=== PATIENT | female | born 1940 | race African-American/Black ===

== ENCOUNTER 2017-03-24 18:41 | Inpatient (IN) | payer MEDICARE ==
--- NOTE | ~2017-03-24 | CT57 ---
[facility] A Service of [facility] RADIOLOGY TEXT RESULTS PATIENT: SUDEEP CURTIS LOCATION: [facility] 454-01 : 42 UNIT #: [id number] AGE: [address]: Jairo Madison MD SEX: F ORDER DR: [id number] [facility]. [place], [place] [address] [id number] I MR#: [id number] #: [id number] NAME: SUDEEP CURTIS : 1940 SEX: F STUDY DATE/TIME: 03/28/2017 13:19 UNIT: [facility] ROOM: 4 STUDY DESCRIPTION: CT Chest Wo Cont Attending Physician: Jairo Madison M.D. Ordering Physician: Veronica Neal M.D. Primary Care Physician: Ana M Pedro M.D. MEDICAL IMAGING REPORT This report is preliminary unless electronic signature is present EXAM CT chest, without contrast. HISTORY Aspiration pneumonia and sepsis and shortness of air for [address] exam was performed with one or more of the following radiation dose reduction techniques: automatic exposure control, adjustment of mA and/or kV according to patient size, and iterative reconstruction. FINDINGS CT chest without contrast demonstrates mild multifocal subsegmental atelectasis versus infiltrate in the bilateral lower lobes, and probable minimal atelectasis in the inferior lingula. No pulmonary consolidation in the upper lungs. No pleural effusions. No adenopathy. Normal caliber thoracic aorta. No pericardial thickening or effusion. IMPRESSION 1. Nnqy-bx-lmjfzpdz multifocal subsegmental atelectasis or infiltrate in the bilateral lower lobes. No focal consolidation in the upper lungs. 2. No adenopathy or effusion. Dictated by... Owen Cordero M.D. THIS IS AN ELECTRONICALLY VERIFIED REPORT Owen Cordero M.D. at 03/29/2017 10:35 PM RENATE/suhas TD: 03/28/2017 23:58 [facility] A Service of [facility] RADIOLOGY TEXT RESULTS PATIENT: SUDEEP CURTIS LOCATION: [facility] 454-01 : 42 UNIT #: [id number] AGE: [address]: Jairo Madison MD SEX: F ORDER DR: JOB #: [id number] MEDICAL IMAGING REPORT Page 1 of 1 COPY
--- NOTE | ~2017-03-24 | DS ---
Unit #: [id number] #: [id number] Patient: SUDEEP CURTIS [id number] [address] [address] [id number] I MR#: [id number] NAME: SUDEEP CURTIS ROOM: 464 Age: 76 Sex: F Admission Date: 03/24/2017 : 1940 Discharge Date: 04/01/2017 Attending Physician: Jairo Madison M.D. Primary Care Physician: Ana M Pedro M.D. DISCHARGE SUMMARY DISCHARGE DIAGNOSES 1. Status post acute hypoxemic respiratory failure. 2. Pneumonia, status post completion of antibiotics. 3. Status post PEG tube, on tube feeds. 4. Urinary tract infection, status post completion of antibiotics. 5. Dementia. 6. Toxic metabolic encephalopathy. 7. Acute kidney injury and hyponatremia, status post nephrology eval: Last BUN and creatinine 12 and 0.4 and sodium of 139. Last chemistry panel was done on March 30. CONSULTS DURING THIS HOSPITAL STAY 1. Dr. Omi Arias - Intensive Care. 2. Dr. Rendon - Surgery. 3. Dr. Fuentes - Nephrology. LABS, DIAGNOSTICS AND PROCEDURES DURING THIS HOSPITAL STAY EGD per surgery showed some gastritis. PEG tube placement. Chest x-ray on admission - coarse interstitial markings left base, suggest left lower lobe interstitial infiltrate. Central line placement per Interventional Radiology. CT of the chest without contrast - mild to moderate multifocal segmental atelectasis or infiltrates in the bilateral lower lobes. No focal consolidation in the upper lungs. No adenopathy or effusion. Urine culture showed Proteus mirabilis. Sputum culture showed MRSA. (1) negative. C. diff negative. Blood culture negative. HISTORY OF PRESENT HOSPITAL STAY Please refer to H and P done by me for initial presentation on this female. Unit #: [id number] #: [id number] Patient: SUDEEP CURTIS ACTIVE PROBLEMS AND DIAGNOSES Acute hypoxic respiratory failure secondary to pneumonia: Was initially admitted to ICU. Was evaluated by pulmonary. Was treated with the bronchodilators and IV antibiotics. Currently stable from pulmonary standpoint. No sign of respiratory distress. Stable to be discharged per pulmonary status post completion antibiotics. Methicillin resistant Staph aureus sputum. Consider colonization. Urinary tract infection, status post completion of antibiotics: Stable. Hyponatremia and acute kidney injury, status post nephrology evaluation: Stable. Last chemistry as above. Dementia: Continue home meds. DISCHARGE MEDICATIONS 1. Tylenol. 2. Valproic acid 250 mg b.i.d. 3. Mysoline 25 mg b.i.d. 4. Klonopin 0.5 mg b.i.d. p.r.n. for anxiety. 5. ProMod 60 mL p.o. t.i.d. 6. Lopressor 25 mg b.i.d. 7. Colace 100 mg b.i.d. 8. MiraLAX daily. 9. Senokot 8.6 mg at bedtime. 10. Nuedexta 20/10, one tablet daily. 11. Namenda 10 mg b.i.d. 12. Zocor 10 mg at bedtime. 13. Sliding scale insulin. 14. Florastor 250 mg daily. 15. Melatonin at bedtime p.r.n. 16. Aspirin 81 mg daily. 17. Long Eddy 5/325, one tablet b.i.d. p.r.n. for pain. 18. Razadyne 4 mg p.o. t.i.d. 19. Zyprexa 2.5 mg in the morning and 5 mg at bedtime. 20. Synthroid 25 mcg daily. 21. Folic acid 1 mg daily. 22. Thiamine 100 mg daily. 23. Will discontinue ferrous sulfate and continue just the Niferex 150 mg daily. DISPOSITION Going to [facility] to Dr. Pedro's care. Extended nursing care to follow as well. Dictated by... Betty Meeks/cayden TD: 04/02/2017 06:09 JOB #: [id number] Unit #: [id number] #: [id number] Patient: SUDEEP CURTIS DISCHARGE SUMMARY Page 1 of 1 X Jairo Madison MD X DISCHARGE SUMMARY
--- NOTE | ~2017-03-24 | CO ---
Unit #: [id number] #: [id number] Patient: SUDEEP CURTIS [id number] [facility]. [place], [place] [address] [id number] I MR#: [id number] NAME: SUDEEP CURTIS ROOM: CIC2 Age: 76 Sex: F Admission Date: 03/24/2017 : 1940 Attending Physician: Jairo Madison M.D. Primary Care Physician: Ana M Pedro M.D. Consultation Date: 03/25/2017 CONSULTATION REPORT REASON FOR CONSULT ICU management. HISTORY OF PRESENT ILLNESS This is a 76-year-old -Swiss female with a past medical history significant for dementia, hypertension, chronic kidney disease, who presented to the emergency room as a transfer from the [facility] with high fever and altered mental status. Apparently, the patient had been at the [facility] for a few months due to generalized weakness and dementia. She had multiple UTIs in the past. The patient had a high fever on the weekend and her mental status was declining slowly. She had also very poor oral intake so she was finally transferred to our facility for evaluation and management. In the emergency room, the patient was lethargic but she mumbles a few words. Her sodium was note to be elevated at 158 with also acute kidney injury with a creatinine of 1. PAST MEDICAL HISTORY 1. Dementia. 2. Chronic kidney disease. 3. Hypertension. 4. GERD. 5. Anemia. 6. Chronic constipation. 7. Hypothyroidism. 8. Malnutrition. 9. Hyperlipidemia. PAST SURGICAL HISTORY Unable to obtain. SOCIAL HISTORY The patient is a nonsmoker. She lives at the [facility]. FAMILY HISTORY Hypertension. REVIEW OF SYSTEMS Unable to obtain from the patient due to her condition. PHYSICAL EXAMINATION GENERAL: The patient is lethargic but she mumbles and responds to verbal Unit #: [id number] #: [id number] Patient: SUDEEP CURTIS stimuli. She moves all her extremities. VITAL SIGNS: Blood pressure 120/61, respiratory rate 16, O2 saturation 98% on room air. HEENT: Atraumatic, normocephalic. PERRLA, EOMI. NECK: Supple. No JVD, no lymphadenopathy. CHEST: Decreased breath sounds bilaterally with left sided crackles. HEART: S1, S2. No murmur, gallops or rubs. ABDOMEN: Soft, nontender. Bowel sounds positive. No hepatosplenomegaly. EXTREMITIES: No edema or cyanosis. SKIN: No rashes. 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 She moves all her extremities. DIAGNOSTIC STUDIES LABORATORY: Hemoglobin 9.6, platelets 190, creatinine 0.9, sodium 157. IMAGING: Chest x-ray is concerning for pneumonia. ASSESSMENT 1. Toxic metabolic encephalopathy. 2. Urosepsis. 3. Pneumonia, likely aspiration. 4. Acute on chronic kidney disease. 5. Hypernatremia. 6. Hyperchloremia. 7. Malnutrition. 8. Hypertension. PLAN 1. The patient will be monitored in ICU closely at least for the next one to two days. 2. Will continue outpatient IV hydration and will monitor sodium closely. 3. Will keep patient NPO pending improvement in her mental status. 4. Broad spectrum antibiotics pending culture. 5. Bronchodilator and mucolytics. 6. DVT prophylaxis. 7. PT/OT when possible. I would like to thank Dr. Madison for allowing me to take part of this patient's care. Dictated by... Betty Garcia TD: 03/25/2017 12:16 JOB #: [id number] Unit #: [id number] #: [id number] Patient: SUDEEP CURTIS CONSULTATION REPORT Page 1 of 1 X OLVIN WILHELM MD CONSULTATION REPORT
--- NOTE | ~2017-03-24 | FU ---
[facility] Nutrition Therapy DATE: 03/30/17 Patient: SUDEEP EVER Physician: ANTONIA Address: [address] [place] [address] Room/Bed: [address] [place] [address], Zip: [place] [address] Admit Date: 03/24/17 Date of : 42 Height: 5 7 Weight: 211 96.1 NUTRITION MONITORING/FOLLOW-UP: Reason: Enteral nutrition follow up Anthropometrics: Last updated wt from 03/29: 96.1 kg (Wt trending up since admission) Labs: Cl- 113 Gluc 121 Creat 0.4 Ca++ 7.8 Accuchecks 72-103 Meds: D5%, novolog, MgSO4, KCl, senokot, miralax, folic acid, protonix, thiamine HCl, synthroid (via feeding tube) I&O's: 4265/1800, last BM 03/29 Skin: no changes noted since previous assessment Edema: Generalized- BUE BLE 2+ Estimated Nutrition Needs: 4634-3117 kcals (15-20 kcals/kg) 94-122 grams protein (1.0-1.3 grams/kg) Diet: NPO Assessment: Chart reviewed, events noted. Pt just returned from PEG placement. RD spoke with the pt's RN. Prior to PEG placement, the pt was receiving enteral nutrition with Jevity 1.5 @ goal of 55 mL/hr. Enteral nutrition will not be resumed until ordered by surgical team. MD ordered 20 cc normal saline q 6 hrs via PEG. Please see recommendations below. Dx: Inadequate oral intake RT current diagnosis AEB pt receiving enteral nutrition- ACTIVE Intervention: 1. PEG 2. Enteral nutrition Monitoring, Evaluation and Goals: 1. EN; provide >80% goal volume x 24 hrs- IN PROGRESS 2. Weights; promote gradual weight loss towards healthy BMI- IN PROGRESS/ NOT MET 3. Labs; WNL: Na+, K+, GLUCOSE- IMPROVED 4. Skin; promote healing- IN PROGRESS 5. GI; promote regular GI function- IN PROGRESS [facility] Nutrition Therapy DATE: 03/30/17 Patient: SUDEEP CURTIS Physician: ANTONIA Address: [address] [facility] Room/Bed: [address] [place] [address], Zip: [place] [address] Admit Date: 03/24/17 Date of : 42 Height: 5 7 Weight: 211 96.1 CONTINUE TO MONITOR ABOVE GOALS Recommendations: 1. Once medically feasible, resume enteral nutrition with Jevity 1.5 @ 30 mL/hr x 22 hrs. Increase by 10 mL q 4 hrs as tolerated to goal of 55 mL/hr x 22 hrs + 30 mL Prostat once daily to provide: 1915 kcals/ 92 grams protein/ 920 mL free H20 Enteral nutrition will run for 22 hrs to account for holding TFs for one hour before and one hour following administration of synthroid 2. Consider adding a MVI + minerals to promote skin healing. Status: Pt is at mild nutritional risk. RD will follow up per protocol. Respectfully, DEBORAH WIGGINS RD, LD Food and Nutritional Services [facility] cc: client file
--- NOTE | ~2017-03-24 | OR ---
Unit #: [id number] #: [id number] Patient: SUDEEP CURTIS [id number] [address] [place], [place] [address] [id number] I MR#: [id number] NAME: SUDEEP CURTIS ROOM: [facility] Date of Procedure: 03/25/2017 Admission Date: 03/24/2017 Surgeon: Olvin Arias M.D. : 1940 Attending Physician: Jairo Madison M.D. Primary Care Physician: Ana M Pedro M.D. PROCEDURE OPERATIVE NOTE PROCEDURE PERFORMED Left intrajugular central venous catheter placement with ultrasound guidance. INDICATION FOR PROCEDURE Sepsis with lack of IV access. COMPLICATIONS None. DESCRIPTION OF PROCEDURE An informed consent was obtained from the family after explaining the benefits and risks of this procedure. Patient was prepped and positioned in a proper way. Then, chlorhexidine was applied to the left neck, and then a body drape was used. Then, with ultrasound guidance, a needle was inserted in the left IJ until blood flow was obtained. Then, a guidewire was inserted two-thirds in, and then there was a resistance. I did not advance it further because of the resistance. Then, a catheter was inserted over the guidewire, and the guidewire was removed. The catheter was sutured in place and flushed appropriately through one of the ports, but the other two ports were infusing but not aspirating back. A stat chest x-ray is pending at the time of dictation to confirm proper placement as there might be some anatomical problem with this patient. Patient tolerated her procedure well with no immediate complication. Dictated by... Olvin Arias M.D. EA/jalen TD: 03/25/2017 21:41 JOB #: [id number] PROCEDURE OPERATIVE NOTE Page 1 of 1 X OLVIN WILHELM MD X PROCEDURE OPERATIVE NOTE
--- NOTE | ~2017-03-24 | CR72 ---
[facility] A Service of [facility] RADIOLOGY TEXT RESULTS PATIENT: SUDEEP CURTIS LOCATION: [facility] [address] : 42 UNIT #: [id number] AGE: [address]: Jairo Madison MD SEX: F ORDER DR: [id number] [facility] [address] [place], [place] [address] [id number] I MR#: [id number] #: [id number] NAME: SUDEEP CURTIS : 1940 SEX: F STUDY DATE/TIME: 03/24/2017 20:13 UNIT: [facility] ROOM: 90634 STUDY DESCRIPTION: CR Chest Single View Portable Attending Physician: Jairo Madison M.D. Ordering Physician: Edmond Leal M.D. Primary Care Physician: Ana M Pedro M.D. MEDICAL IMAGING REPORT This report is preliminary unless electronic signature is present EXAM Portable chest 1 view 03/24/2017 COMPARISON 08/08/2006. CLINICAL HISTORY Short of air. Symptoms for 2 weeks. FINDINGS Coarse left retrocardiac interstitial markings suggest possible left lower lobe infiltrate. There is no consolidation however and there is no effusion or pneumothorax. IMPRESSION Coarse interstitial markings at the left base suggest left lower lobe interstitial infiltrate. No other infiltrate, no effusion or pneumothorax. Dictated by... Jose Day M.D. THIS IS AN ELECTRONICALLY VERIFIED REPORT Jose Day M.D. at 03/27/2017 5:35 PM TEV/mjs TD: 03/25/2017 06:15 JOB #: [id number] MEDICAL IMAGING REPORT [facility] A Service [facility] RADIOLOGY TEXT RESULTS PATIENT: SUDEEP CURTIS LOCATION: [facility] 574 : 42 UNIT #: [id number] AGE: [address]: Jairo Madison MD SEX: F ORDER DR: Page 1 of 1 COPY
--- NOTE | ~2017-03-24 | OR ---
Unit #: [id number] #: [id number] Patient: SUDEEP CURTIS [id number] [address] [address] [id number] I MR#: [id number] NAME: SUDEEP CURTIS ROOM: 464 Date of Procedure: 03/24/2017 Admission Date: 03/24/2017 Surgeon: Sreedhar Rendon M.D. : 1940 Attending Physician: Jairo Madison M.D. Primary Care Physician: Ana M Pedro M.D. OPERATIVE REPORT PREOPERATIVE DIAGNOSIS Inability to tolerate oral intake. POSTOPERATIVE DIAGNOSIS Diffuse gastritis. PROCEDURES PERFORMED 1. Esophagogastroduodenoscopy with biopsy for H. pylori. 2. Percutaneous endoscopic gastrostomy tube placement. MINE BOSS None. ANESTHESIA IV sedation. COMPLICATIONS None. INDICATIONS FOR PROCEDURE The patient is an elderly lady, who presents with progressive dementia and difficulty tolerating oral intake. She presents for PEG placement. DESCRIPTION OF PROCEDURE The patient was taken to the operating theater and placed in supine position. IV sedation was initiated. EGD scope was passed under direct vision into the esophagus. Esophagus was grossly normal. Stomach showed streaking gastritis, mainly at the antrum. A biopsy was taken for H pylori. I was then able to transilluminate the light anterior in the stomach. This was then prepped and anesthetized. A small incision was made. A needle was then passed transcutaneous into the stomach under direct vision. I then grasped the guidewire, delivered via that needle and delivered it orally using Seldinger technique, placed the PEG into position. Hemostasis was adequate. I fashioned the PEG size. The patient tolerated the procedure well and sent to the recovery room in good condition. Dictated by... Sreedhar Rendon M.D. JNO/modl Unit #: [id number] #: [id number] Patient: SUDEEP CURTIS TD: 03/30/2017 23:34 JOB #: [id number] OPERATIVE REPORT Page 1 of 1 X Sreedhar Rendon MD PROCEDURE OPERATIVE NOTE
--- NOTE | ~2017-03-24 | A ---
[facility] Nutrition Therapy DATE: 03/26/17 Patient: SUDEEP CURTIS Physician: ANTONIA Address: [address] [facility] Room/Bed: [address], Zip: [place] [address] Admit Date: 03/24/17 Date of : 42 Height: 5 7 Weight: 208 94.5 NUTRITIONAL ASSESSMENT: REASON: CONSULT RE: ENTERAL NUTRITION SUPPORT PT IS 76 Y.O. FEMALE ADMITTED FOR UTI, SEPSIS, AMS, PNA PMH: DEMENTIA, DIVERTICULITIS, UTI, HTN, HLD, CHRONIC CONSTIPATION, SEIZURE DISORDER, CKD, COPD, GERD, ANEMIA, HYPOTHYROIDISM Anthropometrics: 5'7", WT: 208# (95 KG), BMI: 32.6 Labs: GLU: 121, BUN: 31, CA+:8.1, ALB: 1.5, NA+:149 Meds: KCL, MAG SULFATE, SENOKOT, NOVOLOG, FOLIC ACID, MIRALAX, PROTONIX, THIAMINE, SYNTHROID I/O & Bowel function: 2340/400 Skin Integrity: (L) HEEL PRESSURE ULCER EDEMA: BLE 1+ EDEMA Estimated Nutrition Needs: 2452-3177 KCAL (15-20 KCAL/KG BW) 92-123 G PRO (1.5-2.0 G PRO/KG IBW) FLUIDS CONSISENT W/KCAL NEEDS OR MANAGE PER MD Assessment: CHART REVIEWED AND EVENTS NOTED. PT SEEN FOR ENTERAL NUTRITION SUPPORT. PT CONFUSED AND LETHARGIC AT TIME OF VISIT. PT NOT APPROPRIATE FOR DIET INTERVIEW. PER RN AND CHART, PT ADMITTED FROM [facility] NOTING POOR PO INTAKE AND APPETITE PAST SEVERAL DAYS. NO FAMILY IN ROOM AT THIS TIME. 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 CONSULT FOR RD RECOMMENDATIONS. RD TO FOLLOW. Dx: INADEQUATE ORAL INTAKE R/T CURRENT DIAGNOSIS AEB PT RECEIVING ENTERAL NUTRITION SUPPORT. Intervention: 1. ENTERAL NUTRITION IN PLACE 2. RD CONSULT Monitoring, Evaluation and Goals: 1. ENTERAL NUTRITION; PROVIDE >80% TOTAL VOLUME X 24 HOURS 2. WEIGHTS; PROMOTE GRADUAL WEIGHT LOSS TOWARDS HEALTHY BMI 3. LABS; WNL: NA+, K+, GLU 4. SKIN; PROMOTE SKIN HEALING 5. GI; PROMOTE REGULAR BOWEL FUNCTION [facility] Nutrition Therapy DATE: 03/26/17 Patient: SUDEEP CURTIS Physician: ANTONIA Address: [address] [facility] Room/Bed: [address], Zip: [place] [address] Admit Date: 03/24/17 Date of : 42 Height: 5 7 Weight: 208 94.5 MONITOR: -TF RATE/RESIDUALS -WEIGHTS -DIET ADVANCEMENT? -LABS Recommendations: 1. RECOMMEND TO CHANGE CURRENT ENTERAL NUTRITION SUPPORT TO JEVITY 1.5 @ 20 ML/HR, ADVANCE 10 ML q 6 HOURS TO GOAL RATE OF 55 ML/HR + SUGAR-FREE PROSTAT ONCE DAILY X 22 HOURS (PT ON SYNTHROID-HOLD ONE HOUR BEFORE AND ONE HOUR AFTER ADMINISTRATION) -PROVIDES 1915 KCAL, 92 G PRO, 920 ML FREE H20 ADD FREE H20 FLUSHES PER MD 2' HYPERNATREMIA NOTED 2. ONCE MEDICALLY FEASIBLE AND PT ABLE TO TOLERATE PO INTAKE, CONSULT DRAG OUT MAN FOR EVAL + HEALTHY HEART DIET RD WILL F/U PER PROTOCOL PT IS MODERATELY COMPROMISED Respectfully, ROSALES JULIO MS, RD, LD Food and Nutritional Services [facility] cc: client file
--- NOTE | ~2017-03-24 | CR7 ---
[facility] A Service of [facility] RADIOLOGY TEXT RESULTS PATIENT: SUDEEP CURTIS LOCATION: [address] : [birth year] UNIT #: [id number] AGE: [address]: Jairo Madison MD SEX: F ORDER DR: [id number] [facility] [address] [facility]. [place], [place] [address] [id number] MR#: [id number] Acc #: [id number] NAME: SUDEEP CURTIS : 1940 SEX: F STUDY DATE/TIME: 03/25/2017 16:05 UNIT: [facility] ROOM: [facility] STUDY DESCRIPTION: CR Abdomen Single AP View Attending Physician: Jairo Madison M.D. Ordering Physician: Jairo Madison M.D. Primary Care Physician: Ana M Pedro M.D. MEDICAL IMAGING REPORT This report is preliminary unless electronic signature is present EXAM KUB HISTORY Dobbhoff tube placed. TECHNIQUE Single view of the abdomen was obtained. FINDINGS A Dobbhoff tube is seen coiled in the upper stomach in good position. The bowel gas pattern is normal. STAT * RESULT Dictated by... Edmond Chaves M.D. THIS IS AN ELECTRONICALLY VERIFIED REPORT Edmond Chaves M.D. at 03/26/2017 3:43 PM DWAYEN/maximiliano TD: 03/25/2017 16:19 JOB #: [id number] MEDICAL IMAGING REPORT Page 1 of 1 COPY
--- NOTE | ~2017-03-24 | EKG ---
PATIENT: SUDEEP CURTIS UNIT #: [id number] Ventricular Rate: 104 BPM Atrial Rate: 104 BPM P-R Interval: 122 ms QRS Duration: 80 ms Q-T Interval: 330 ms QTC Calculation(Bezet): 433 ms P [place]: 13 degrees Calculated R [place]: -8 degrees Calculated T [place]: 115 degrees Diagnosis Line: Sinus tachycardia Diagnosis Line: Left ventricular hypertrophy with repolarization Diagnosis Line: abnormality Diagnosis Line: Abnormal ECG Diagnosis Line: No previous ECGs available Diagnosis Line: Confirmed by ISMAEL LAGUNA MD ([id number]) on Diagnosis Line: 03/25/2017 11:04:03 AM INTERPRETING IVELISSE STEWARD
--- NOTE | ~2017-03-24 | HP ---
Unit #: [id number] #: [id number] Patient: SUDEEP CURTIS [id number] [address] [place], [place] [address] [id number] I MR#: [id number] NAME: SUDEEP CURTIS ROOM: [facility] Age: 76 Sex: F Admission Date: 03/24/2017 : 1940 Attending Physician: Jairo Madison M.D. Primary Care Physician: Ana M Pedro M.D. HISTORY AND PHYSICAL ADMISSION DIAGNOSES 1. Altered mental status. 2. Dementia. 3. Pneumonia. 4. Urinary tract infection. 5. Hypernatremia. 6. Hypertension. 7. Dyslipidemia. 8. History of seizure disorder. HISTORY OF PRESENT ILLNESS Ms. Sudeep Curtis is a 76-year-old female with a past medical history of dementia, seizures, hypertension, dyslipidemia, and resident of long term under the care of Dr. Danny Pedro, who was brought from the long term secondary to increasing lethargy and unresponsiveness. Also, patient reportedly had a high sodium the last time her chemistry was checked at the long term. Initial evaluation in the ER was significant for pneumonia, UTI, and a sodium of 157. Patient is admitted to the ICU. She is at the baseline demented to the point that unable to carry on a conversation. All the history is obtained through the patient's daughter who is present at the bedside who informs me that so far patient is a Full Code. There are six children in the family, and they have not made any firm agreement regarding her mother's status. But so far, she has informed me that the patient is a Full Code. Patient's daughter has limited information. She states that her mother had been declining lately to the point that she was not able to carry on any meaningful conversation. Also, she has had multiple bouts of UTI at the long term. Due to patient's mental status, I am not able to obtain any further history; neither am I able to obtain any review of systems. PAST MEDICAL HISTORY 1. Dementia. 2. Chronic kidney disease. 3. Seizures and epilepsy. 4. Hypertension. 5. Gastroesophageal reflux disease. 6. Anemia of chronic disease. 7. Hypothyroidism. 8. Dyslipidemia. 9. Chronic constipation. PAST SURGICAL HISTORY 1. Bilateral knee replacement. 2. 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 Unit #: [id number] #: [id number] Patient: SUDEEP CURTIS HOME MEDICATIONS I do not have in front of me. These will be clarified with the pharmacy, and patient will be restarted accordingly. ALLERGIES Dilantin, Ultram, phenytoin, and phenobarbital. SOCIAL HISTORY Again, resident of long term. No history of tobacco, alcohol, or illicit drugs. FAMILY HISTORY Unremarkable. PHYSICAL EXAMINATION GENERAL: Patient is a 76-year-old, obese, female who is confused and lethargic. HEENT: Head is atraumatic. Pupils round and reactive to light. Oropharynx clear. NECK: Supple. No mass, no JVD, and no bruits. CHEST: Diminished bilaterally. CARDIOVASCULAR: S1 and S2. No murmurs. ABDOMEN: Obese, soft, nontender, and nondistended. Bowel sounds present. LOWER EXTREMITIES: Without any significant cyanosis, clubbing, or edema. NEUROLOGIC: Unobtainable secondary to patient's mental status. DIAGNOSTIC STUDIES LABORATORY: Blood gases show a pH of 7.46, PCO2 of 33, and PO2 of 68. Chemistry with sodium of 157, chloride 128, potassium 3.2, BUN and creatinine 38 and 0.9, blood glucose 136, and albumin 1.5. Set of cardiac enzymes negative. Hematology with white count of 17,000 initially, hemoglobin and hematocrit 9.6 and 30.8, and platelets 190,000. Urinalysis with 3+ leukocyte esterase, 2+ protein, and innumerable WBCs. Cultures pending. IMAGING: Chest x-ray shows left base interstitial infiltrate. ASSESSMENT AND PLAN 1. Acute hypoxemic respiratory failure secondary to pneumonia. Started on healthcare-acquired protocol. Pulmonary follows, Dr. Omi Arias. Follow up on the cultures. DuoNebs q.4 hours. Continue per Pulmonary. 2. Altered mental status most likely multifactorial secondary to worsening dementia plus underlying toxic metabolic encephalopathy, underlying infection, and questionable sepsis. 3. Worsening dementia. 4. Urinary tract infection. Again, follow up on cultures. Continue current antibiotics. 5. Hypernatremia. Treat with D5 half normal IV fluids. Nephrology to see. 6. Hypertension, currently stable. 7. Dyslipidemia. Continue home medications. 8. History of seizure disorder. Continue home medications. Do seizure precautions. 9. Gastrointestinal and deep venous thrombosis prophylaxis with Lovenox and proton pump inhibitor. 1. Unit #: [id number] #: [id number] Patient: SUDEEP CURTIS Dictated by Betty Meeks/jalen TD: 03/25/2017 19:37 JOB #: [id number] HISTORY AND PHYSICAL Page 1 of 1 X Jairo Madison MD X HISTORY AND PHYSICAL
--- NOTE | ~2017-03-24 | XA84 ---
[facility] A Service of [facility] RADIOLOGY TEXT RESULTS PATIENT: SUDEEP CURTIS LOCATION: C4B 454-01 : [birth year] UNIT #: [id number] AGE: [address]: Jairo Madison MD SEX: F ORDER DR: [id number] [facility] [address] [facility]. [place], [place] [address] [id number] I MR#: [id number] Acc #: [id number] NAME: SUDEEP CURTIS : 1940 SEX: F STUDY DATE/TIME: 03/26/2017 12:36 UNIT: C5 ROOM: 574 STUDY DESCRIPTION: XA CVC Replace Nontunnelled Sa Attending Physician: Jairo Madison M.D. Ordering Physician: Omi Arias M.D. Primary Care Physician: Ana M Pedro M.D. MEDICAL IMAGING REPORT This report is preliminary unless electronic signature is present EXAM Central venous line replacement HISTORY Ms. Curtis is a 76-year-old lady who underwent central line placement on March 17, 2017. A follow-up followup chest radiograph showed the catheter positioned within the right innominate vein. Re-position of the catheter has been requested. PROCEDURE The procedure was explained to the patient's novelties sales representative including risks, benefits, potential complications, potential for alternative forms of treatment. Informed consent was obtained prior to initiating procedure. A formal time-out procedure was performed. Using all elements of maximal sterile barrier technique including hand hygiene, caps, sterile gowns, gloves, and masks. The left neck was prepped with 2% Chlorhexidine for cutaneous anti-sepsis and covered with a large sterile sheet. Skin and subcutaneous tissues around the patient's central line were anesthetized with lidocaine. A stiff glidewire was advanced through the catheter and was manipulated into the right atrium. The catheter was retracted over a wire and a new triple-lumen catheter was advanced over wire and positioned in the right atrium. Upon placement of the catheter, it flushed and aspirated easily. Total fluoroscopy time was 1.5 minutes AK was 15 mGy. IMPRESSION Successful replacement of this patient's left internal jugular vein central venous line. Catheter now terminates within the right atrium and is ready for immediate use. Fluoroscopy was used to the procedure and images were saved. [facility] A Service of [facility] RADIOLOGY TEXT RESULTS PATIENT: SUDEEP CURTIS LOCATION: C4B 454-01 : [birth year] UNIT #: [id number] AGE: [address]: Jairo Madison MD SEX: F ORDER DR: Dictated by... Nicki Smallwood M.D. THIS IS AN ELECTRONICALLY VERIFIED REPORT Nicki Smallwood M.D. at 03/30/2017 5:22 PM AFF/pcl TD: 03/27/2017 15:47 JOB #: [id number] MEDICAL IMAGING REPORT Page 1 of 1 COPY
--- NOTE | ~2017-03-24 | CR72 ---
[facility] A Service of [facility] RADIOLOGY TEXT RESULTS PATIENT: SUDEEP CURTIS LOCATION: [address] : [birth year] UNIT #: [id number] AGE: [address]: Jairo Madison MD SEX: F ORDER DR: [id number] [facility] [address] [facility]. [place], [place] [address] [id number] I MR#: [id number] #: [id number] NAME: SUDEEP CURTIS : 1940 SEX: F STUDY DATE/TIME: 03/25/2017 15:56 UNIT: [facility] ROOM: [facility] STUDY DESCRIPTION: CR Chest Single View Portable Attending Physician: Jairo Madison M.D. Ordering Physician: Omi Arias M.D. Primary Care Physician: Ana M Pedro M.D. MEDICAL IMAGING REPORT This report is preliminary unless electronic signature is present EXAM Portable chest HISTORY Central line placed today. TECHNIQUE Single view of the chest was obtained and compared with 03/24/2017 FINDINGS A left-sided supraclavicular line is seen. The tip extends into the superior vena cava but then turns upwards toward the base of the neck rather than downwards toward the right atrium. The line could be pulled back and re-advanced for adequate positioning. A Dobbhoff tube is seen coiled in the upper stomach. No pneumothorax noted. Basilar infiltrates are unchanged. IMPRESSION The tip of the central line extends up into the superior vena cava toward the base of the neck rather than down toward the right atrium. No evidence of pneumothorax. Dobbhoff tube in good position. STAT * RESULT Dictated by... Edmond Chaves M.D. THIS IS AN ELECTRONICALLY VERIFIED REPORT Edmond Chaves M.D. at 03/26/2017 3:43 PM RLF/agatha [facility] A Service of [facility] RADIOLOGY TEXT RESULTS PATIENT: SUDEEP CURTIS LOCATION: [facility] CICCU2-12 : 42 UNIT #: [id number] AGE: [address]: Jairo Madison MD SEX: F ORDER DR: TD: 03/25/2017 16:20 JOB #: [id number] MEDICAL IMAGING REPORT Page 1 of 1 COPY
--- NOTE | ~2017-03-24 | CO ---
Unit #: [id number] #: [id number] Patient: SUDEEP CURTIS [id number] [address] [address] [id number] I MR#: [id number] NAME: SUDEEP CURTIS ROOM: 454 Age: 76 Sex: F Admission Date: 03/24/2017 : 1940 Attending Physician: Jairo Madison M.D. Primary Care Physician: Ana M Pedro M.D. Consultation Date: 03/30/2017 CONSULTATION REPORT BRIEF HISTORY The patient is a 76-year-old lady, who presents with dementia and seizure disorder, who is tube feed dependent. I am asked to evaluate for possible PEG placement. PAST MEDICAL HISTORY Hypertension, hypernatremia, history of seizure disorder, chronic GERD, dementia. PAST SURGICAL HISTORY She has had no abdominal operations. HOME MEDICATIONS Unknown. SOCIAL HISTORY assisted resident. FAMILY HISTORY Unremarkable. REVIEW OF SYSTEMS Unobtainable. PHYSICAL EXAMINATION GENERAL: She is awake, but does not follow commands. VITAL SIGNS: Currently, afebrile. HEENT: Unremarkable. NECK: Supple. No JVD. Trachea midline. LUNGS: Clear to auscultation. Bilateral breath sounds symmetric. CARDIOVASCULAR: Regular rate and rhythm. ABDOMEN: Soft, nontender, and nondistended. I palpate no masses. No hepatosplenomegaly. EXTREMITIES: No clubbing, cyanosis, or edema. DIAGNOSTIC STUDIES LABORATORY RESULTS: Show white count of 8, hemoglobin 8.4. ASSESSMENT AND PLAN Progressive dementia. PLAN Recommend PEG placement. Discussed via the primary care physician with family. Unit #: [id number] #: [id number] Patient: SUDEEP CURTIS Dictated by... Sreedhar Rendon M.D. ORION/jennifer TD: 03/30/2017 12:52 JOB #: [id number] CONSULTATION REPORT Page 1 of 1 X Sreedhar Rendon MD X CONSULTATION REPORT
[2017-03-24 20:21] LABS: BASOPHIL# 0.1 X10e3 (0-0.3); BASOPHIL% 0.4 % (0-2.5); EOSINOPHIL# 0.1 X10e3 (0-0.7); EOSINOPHIL% 0.4 % (0.0-7.0); HEMOGLOBIN 11.7 gm/dL (12.0-16.0); LYMPHOCYTE# 1.7 X10e3 (1.0-3.5); LYMPHOCYTE% 9.9 % (17.0-45.0); MEAN CORPUSCULAR HEMOGLOBIN 31.1 PG (28-34); MEAN CORPUSCULAR HGB CONC 30.8 g/dL (30-36); MEAN PLATELET VOLUME 8.4 FL (6.5-11.5); MONOCYTE% 5.8 % (3.0-12.0); NEUTROPHIL# 14.2 X10e3 (1.5-7.1); NEUTROPHIL% 83.5 % (40-75); PLATELET COUNT 269 X10e3 (140-420); RED BLOOD COUNT 3.76 X10e (3.90-5.30); RED CELL DISTRIBUTION WIDTH 15.1 % (11.0-15.5)
[2017-03-24 20:22] LABS: DIFF IND YES
[2017-03-24 20:37] LABS: URINE SOURCE CLEAN CATCH
[2017-03-24 20:43] LABS: BILIRUBIN, DIRECT 0.1 mg/dL (0.0-0.2); BILIRUBIN,INDIRECT 0.1 mg/dL (0.0-0.9); BILIRUBIN,TOTAL 0.2 mg/dL (0.2-2.0); CALCIUM SERUM 9.4 mg/dL (8.4-10.2); GLOM FILT RATE Estimated 64.3 mL/min (>60); POTASSIUM 3.7 mmol/L (3.5-5.1); PROTEIN TOTAL SERUM 7.8 g/dL (6.0-8.3)
[2017-03-24 20:46] LABS: PLATELET ESTIMATE NORMAL (NORMAL)
[2017-03-24 20:53] LABS: URINE APPEARANCE TURBID; URINE BLOOD 3+ (NEG); URINE COLOR DK YELLOW; URINE GLUCOSE NEG (NEG); URINE KETONE TRACE (NEG); URINE LEUKOCYTE ESTERASE 3+ (NEG); URINE NITRATE NEG (NEG); URINE PROTEIN 2+ (NEG)
[2017-03-24 20:57] LABS: CULTURE INDICATED? YES; URINE BACTERIA AUWI 4+ (NEGATIVE); URINE SQUAMOUS EPITHELIAL CELL FEW /[HPF]; UWBCS1 AUWI INNUM (0-5)
[2017-03-24 21:40] LABS: POC - CKMB 3.5 ng/mL (0.0-7.9); POC - TROPONIN <0.05 ng/mL (<=0.05)
[2017-03-25] MEDS ORDERED: ASPIRIN81 M2 PO (01:12)
[2017-03-25] MEDS ORDERED: DEPAKOTE250 MG PO (01:13)
[2017-03-25] MEDS ORDERED: KLONOPIN0.5 MG PO (01:13)
[2017-03-25] MEDS ORDERED: DOCUSATE SODIU100 MG PO (01:13)
[2017-03-25] MEDS ORDERED: FOLIC ACID1 MG PO (01:13)
[2017-03-25] MEDS ORDERED: MELATONIN3 MG PO (01:14)
[2017-03-25] MEDS ORDERED: MIRALAX17 GM PO (01:14)
[2017-03-25] MEDS ORDERED: LOPRESSOR PO (01:14)
[2017-03-25] MEDS ORDERED: MYSOLINE50 M1 PO (01:14)
[2017-03-25] MEDS ORDERED: NAMENDA10 MG PO (01:15)
[2017-03-25] MEDS ORDERED: NIFEREX PO (01:16)
[2017-03-25] MEDS ORDERED: NUEDEXTA 20-101 EACH PO (01:17)
[2017-03-25] MEDS ORDERED: PROMOD946 ML PO (01:17)
[2017-03-25] MEDS ORDERED: LORTAB 5-325 M1 EACH PO (01:17)
[2017-03-25] MEDS ORDERED: PRILOSEC PO (01:17)
[2017-03-25] MEDS ORDERED: SENNA CONCENTR8.6 MG PO (01:18)
[2017-03-25] MEDS ORDERED: SYNTHROID25 MCG PO (01:18)
[2017-03-25] MEDS ORDERED: RAZADYNE4 MG PO (01:18)
[2017-03-25] MEDS ORDERED: THIAMINE HCL100 M1 PO (01:19)
[2017-03-25] MEDS ORDERED: ZOCOR10 MG PO ×2 (01:19→01:20)
[2017-03-25] MEDS ORDERED: TYLENOL325 M1 PO (01:19)
[2017-03-25] MEDS ORDERED: ZYPREXA PO (01:20)
[2017-03-25] MEDS ORDERED: ZYPREXA2.5 MG PO (01:20)
[2017-03-25 05:42] LABS: BASOPHIL# 0.1 X10e3 (0-0.3); BASOPHIL% 0.5 % (0-2.5); EOSINOPHIL# 0.2 X10e3 (0-0.7); EOSINOPHIL% 1.1 % (0.0-7.0); HEMATOCRIT 30.8 % (35.0-45.0); HEMOGLOBIN 9.6 gm/dL (12.0-16.0); LYMPHOCYTE# 1.1 X10e3 (1.0-3.5); LYMPHOCYTE% 8.1 % (17.0-45.0); MEAN CELL VOLUME 102.3 FL (83-96); MEAN CORPUSCULAR HEMOGLOBIN 31.8 PG (28-34); MEAN CORPUSCULAR HGB CONC 31.1 g/dL (30-36); MEAN PLATELET VOLUME 8.4 FL (6.5-11.5); MONOCYTE# 0.9 X10e3 (0-1.0); MONOCYTE% 6.7 % (3.0-12.0); NEUTROPHIL# 11.6 X10e3 (1.5-7.1); NEUTROPHIL% 83.6 % (40-75); PLATELET COUNT 190 X10e3 (140-420); RED BLOOD COUNT 3.01 X10e (3.90-5.30); RED CELL DISTRIBUTION WIDTH 15.6 % (11.0-15.5); WHITE BLOOD COUNT 13.8 X10e3 (4.0-10.5)
[2017-03-25 05:43] LABS: DIFF IND NO
[2017-03-25 06:36] LABS: ALBUMIN SERUM 1.5 g/dL (3.5-5.0); ALKALINE PHOSPHATASE 62 U/L (32-92); ALT (SGPT) 23 U/L (10-40); AST (SGOT) 29 U/L (10-42); BLOOD UREA NITROGEN 38 mg/dL (9-23); BUN/CREATININE RATIO 42.22; CALCIUM SERUM 8.1 mg/dL (8.4-10.2); CARBON DIOXIDE 24 mmol/L (22-31); CHLORIDE 128 mmol/L (100-111); CREATININE SERUM 0.9 mg/dL (0.6-1.4); GLOM FILT RATE Estimated 73.1 mL/min (>60); GLUCOSE FASTING 136 mg/dL (70-110); POTASSIUM 3.2 mmol/L (3.5-5.1); PROTEIN TOTAL SERUM 6.2 g/dL (6.0-8.3); SODIUM 157 mmol/L (135-145)
[2017-03-25 06:38] LABS: BILIRUBIN,TOTAL <0.1 mg/dL (0.2-2.0)
[2017-03-25 10:24] LABS: ARTERIAL BLD GAS O2 SATURATION 92.2 % (90.0-100.0); ARTERIAL BLOOD GAS CARBOXY HB 0.7 %sat (0.0-9.0); ARTERIAL BLOOD GAS HCO3 23.7 mmol/L; ARTERIAL BLOOD GAS MET HB 0.8 %sat (0.0-2.0); ARTERIAL BLOOD GAS PCO2 33.3 mmHg (35.0-45.0)
[2017-03-25 10:25] LABS: ARTERIAL BLOOD GAS ART SITE RIGHT BRACHIAL; ARTERIAL DRAW? YES
[2017-03-25 16:14] LABS: ARTERIAL BLD GAS O2 SATURATION 73.8 % (90.0-100.0); ARTERIAL BLOOD GAS CARBOXY HB 0.7 %sat (0.0-9.0); ARTERIAL BLOOD GAS HCO3 21.8 mmol/L; ARTERIAL BLOOD GAS MET HB 0.8 %sat (0.0-2.0); ARTERIAL BLOOD GAS pH 7.429 (7.350-7.450)
[2017-03-25 16:15] LABS: ARTERIAL BLOOD GAS DELIVERY NASAL CANNULA; ARTERIAL BLOOD GAS PO2 42.1 mmHg (80.0-100); ARTERIAL DRAW? NO
[2017-03-25 19:19] LABS: BUN/CREATININE RATIO 38.75; CALCIUM SERUM 8.4 mg/dL (8.4-10.2); CREATININE SERUM 0.8 mg/dL (0.6-1.4); GLOM FILT RATE Estimated 84.3 mL/min (>60); POTASSIUM 3.1 mmol/L (3.5-5.1)
[2017-03-26 05:39] LABS: BASOPHIL% 0.3 % (0-2.5); EOSINOPHIL# 0.6 X10e3 (0-0.7); EOSINOPHIL% 4.8 % (0.0-7.0); HEMATOCRIT 31.1 % (35.0-45.0); HEMOGLOBIN 9.5 gm/dL (12.0-16.0); LYMPHOCYTE# 1.3 X10e3 (1.0-3.5); LYMPHOCYTE% 11.5 % (17.0-45.0); MEAN CORPUSCULAR HEMOGLOBIN 31.6 PG (28-34); MEAN CORPUSCULAR HGB CONC 30.7 g/dL (30-36); MEAN PLATELET VOLUME 8.8 FL (6.5-11.5); MONOCYTE# 0.6 X10e3 (0-1.0); MONOCYTE% 5.6 % (3.0-12.0); NEUTROPHIL% 77.8 % (40-75); PLATELET COUNT 177 X10e3 (140-420); RED BLOOD COUNT 3.02 X10e (3.90-5.30); RED CELL DISTRIBUTION WIDTH 15.3 % (11.0-15.5); WHITE BLOOD COUNT 11.6 X10e3 (4.0-10.5)
[2017-03-26 06:07] LABS: DIFF IND NO
[2017-03-26 06:48] LABS: ALBUMIN SERUM 1.5 g/dL (3.5-5.0); BILIRUBIN,TOTAL 0.2 mg/dL (0.2-2.0); BUN/CREATININE RATIO 44.28; CALCIUM SERUM 8.1 mg/dL (8.4-10.2); CREATININE SERUM 0.7 mg/dL (0.6-1.4); GLOM FILT RATE Estimated 98.9 mL/min (>60); MAGNESIUM 1.9 mg/dL (1.6-3.0); POTASSIUM 3.7 mmol/L (3.5-5.1); PROTEIN TOTAL SERUM 5.7 g/dL (6.0-8.3)
[2017-03-26 06:59] LABS: LEGIONELLA AG URINE NEG (NEG)
[2017-03-27 06:07] LABS: BASOPHIL# 0.1 X10e3 (0-0.3); BASOPHIL% 0.6 % (0-2.5); EOSINOPHIL# 0.6 X10e3 (0-0.7); EOSINOPHIL% 7.4 % (0.0-7.0); HEMATOCRIT 27.7 % (35.0-45.0); HEMOGLOBIN 8.7 gm/dL (12.0-16.0); LYMPHOCYTE# 1.2 X10e3 (1.0-3.5); LYMPHOCYTE% 13.3 % (17.0-45.0); MEAN CELL VOLUME 101.4 FL (83-96); MEAN CORPUSCULAR HEMOGLOBIN 31.7 PG (28-34); MEAN CORPUSCULAR HGB CONC 31.3 g/dL (30-36); MEAN PLATELET VOLUME 9.2 FL (6.5-11.5); MONOCYTE# 0.6 X10e3 (0-1.0); MONOCYTE% 6.5 % (3.0-12.0); NEUTROPHIL# 6.3 X10e3 (1.5-7.1); NEUTROPHIL% 72.2 % (40-75); PLATELET COUNT 172 X10e3 (140-420); RED BLOOD COUNT 2.73 X10e (3.90-5.30); RED CELL DISTRIBUTION WIDTH 14.8 % (11.0-15.5); WHITE BLOOD COUNT 8.7 X10e3 (4.0-10.5)
[2017-03-27 06:14] LABS: DIFF IND NO
[2017-03-27 06:35] LABS: BUN/CREATININE RATIO 37.14; CALCIUM SERUM 7.7 mg/dL (8.4-10.2); CREATININE SERUM 0.7 mg/dL (0.6-1.4); GLOM FILT RATE Estimated 98.9 mL/min (>60); POTASSIUM 3.1 mmol/L (3.5-5.1)
[2017-03-28 06:52] LABS: CALCIUM SERUM 7.8 mg/dL (8.4-10.2); CREATININE SERUM 0.6 mg/dL (0.6-1.4); GLOM FILT RATE Estimated 104.1 mL/min (>60); MAGNESIUM 1.9 mg/dL (1.6-3.0)
[2017-03-28 07:16] LABS: BASOPHIL% 0.3 % (0-2.5); EOSINOPHIL# 0.6 X10e3 (0-0.7); EOSINOPHIL% 7.5 % (0.0-7.0); HEMATOCRIT 26.2 % (35.0-45.0); HEMOGLOBIN 8.2 gm/dL (12.0-16.0); LYMPHOCYTE# 1.3 X10e3 (1.0-3.5); LYMPHOCYTE% 17.7 % (17.0-45.0); MEAN CORPUSCULAR HEMOGLOBIN 31.6 PG (28-34); MEAN CORPUSCULAR HGB CONC 31.3 g/dL (30-36); MONOCYTE# 0.7 X10e3 (0-1.0); MONOCYTE% 8.8 % (3.0-12.0); NEUTROPHIL# 4.9 X10e3 (1.5-7.1); NEUTROPHIL% 65.7 % (40-75); PLATELET COUNT 155 X10e3 (140-420); RED BLOOD COUNT 2.59 X10e (3.90-5.30); WHITE BLOOD COUNT 7.5 X10e3 (4.0-10.5)
[2017-03-28 07:17] LABS: DIFF IND YES
[2017-03-28 09:16] LABS: PLATELET ESTIMATE NORMAL (NORMAL); RBC NORMAL YES
[2017-03-29 05:37] LABS: HEMOGLOBIN 8.2 gm/dL (12.0-16.0); MEAN CELL VOLUME 100.5 FL (83-96); MEAN CORPUSCULAR HEMOGLOBIN 31.5 PG (28-34); MEAN CORPUSCULAR HGB CONC 31.4 g/dL (30-36); MEAN PLATELET VOLUME 8.5 FL (6.5-11.5); RED BLOOD COUNT 2.59 X10e (3.90-5.30); RED CELL DISTRIBUTION WIDTH 14.9 % (11.0-15.5); WHITE BLOOD COUNT 8.4 X10e3 (4.0-10.5)
[2017-03-29 06:20] LABS: BUN/CREATININE RATIO 37.5; CALCIUM SERUM 7.5 mg/dL (8.4-10.2); CREATININE SERUM 0.4 mg/dL (0.6-1.4); GLOM FILT RATE Estimated 118.9 mL/min (>60); POTASSIUM 4.1 mmol/L (3.5-5.1)
[2017-03-30 03:33] LABS: CALCIUM SERUM 7.8 mg/dL (8.4-10.2); CREATININE SERUM 0.4 mg/dL (0.6-1.4); GLOM FILT RATE Estimated 118.9 mL/min (>60)
== END 2017-04-01 22:12 | DRG 871 ==
LOC: CED 18:41 → C4B 23:24 → CICCU2 23:24 → CEDOF 23:24 → CICCU2 03-25 09:52 → C5C 03-27 11:22 → C4B 03-29 11:26 → C4C 03-30 17:51
PROVIDERS: Emergency Medicine; Hospitalist
PROC: 05HN33Z Insertion of Infusion Device into Left Internal Jugular Vein, Percutaneous Approach (ICD-10-PCS; principal; 2017-03-25)
PROC: B514YZA Fluoroscopy of Left Jugular Veins using Other Contrast, Guidance (ICD-10-PCS; 2017-03-25)
DX: A41.89 Other specified sepsis (principal); J96.01 Acute respiratory failure with hypoxia; J69.0 Pneumonitis due to inhalation of food and vomit; G92 Toxic encephalopathy; N17.9 Acute kidney failure, unspecified; E87.0 Hyperosmolality and hypernatremia; N39.0 Urinary tract infection, site not specified; E46 Unspecified protein-calorie malnutrition; F03.90 Unspecified dementia, unspecified severity, without behavioral disturbance, psychotic disturbance, mood disturbance, and anxiety; G40.909 Epilepsy, unspecified, not intractable, without status epilepticus; K21.9 Gastro-esophageal reflux disease without esophagitis; E03.9 Hypothyroidism, unspecified; E78.5 Hyperlipidemia, unspecified; K59.09 Other constipation; Z96.643 Presence of artificial hip joint, bilateral; B96.4 Proteus (mirabilis) (morganii) as the cause of diseases classified elsewhere; Z68.32 Body mass index [BMI] 32.0-32.9, adult; I12.9 Hypertensive chronic kidney disease with stage 1 through stage 4 chronic kidney disease, or unspecified chronic kidney disease; N18.9 Chronic kidney disease, unspecified
CPT/HCPCS: 36415; 36600; 51701; 71010; 71250; 74000; 77001; 80048; 80053; 80076; 80200; 80202; 81003; 82308; 82553; 82803; 82947; 83605; 83735; 84132; 84295; 84484; 85025; 85027; 87040; 87070; 87077; 87086; 87088; 87186; 87205; 87449; 87493; 87899; 92526; 92610; 93005; 94640; 94760; 96360; 99291; C1769; C9113; G8996-GN; G8997-GN; G8998-GN; J0690; J0696; J1642; J1650; J2020; J2543; J3260; J3370; J3475